=== PATIENT | male | born 1960 | race Caucasian/White ===

== ENCOUNTER → 2020-07-28 | Outpatient (CLI) | payer OTHER | LOC: SJCVC 12:10 | PROVIDERS: ATTEND Internal Medicine | DX: R94.31 Abnormal electrocardiogram [ECG] [EKG] (principal); R06.00 Dyspnea, unspecified; E78.5 Hyperlipidemia, unspecified ==

== ENCOUNTER → 2020-08-13 | Outpatient (CLI) | payer OTHER ==
[~2020-08-13] MED LIST: ASA81BEC PO; DEPO-TESTO100 MG/1 M IM; FENOFIBRATE160 MG PO; GLIPIZIDE5 MG PO; LISINOPRIL2.5 MG PO; METFORMIN HCL500 M3 PO; PROTONIX40 M4 PO; SILDENAFIL CIT100 MG PO; SUPER THERAVIT1 EACH PO
== END ==
LOC: SJCVCIMAG 07:02
PROVIDERS: ATTEND Internal Medicine
DX: I34.0 Nonrheumatic mitral (valve) insufficiency (principal); I42.0 Dilated cardiomyopathy; I48.0 Paroxysmal atrial fibrillation; I11.9 Hypertensive heart disease without heart failure; I49.3 Ventricular premature depolarization; R00.0 Tachycardia, unspecified; Z79.899 Other long term (current) drug therapy; Z87.891 Personal history of nicotine dependence

== ENCOUNTER → 2020-08-15 | Outpatient (CLI) | payer OTHER ==
[~2020-08-15] VITALS: Ht 175.3 cm; Wt 108.9 kg
[2020-08-15 07:09] VITALS: BP 160/94
[2020-08-15 07:31] LABS: HEMOGLOBIN 16.6 gm/dL (14.0-18.0); MCH 30.6 pg (26.0-34.0); MCHC 33.1 g/dL (28.0-37.0); MCV 92.3 fL (80.0-100.0); RBC 5.41 mil/uL (4.50-6.00); RDW 13.1 % (10.5-14.5)
--- NOTE | 2020-08-15 07:40 | EKG ---
[facility] [place] [address] ELECTROCARDIOGRAM REPORT Name: TEAGAN HOOD [id number] Admission: 08/15/20 Attend Phys: Lionel Nicolas MD, Discharge: Date of : 58 Report #: [id number] THIS REPORT FOR: cc: Yifan Amaral MD, David P. MD Lundgren, Craig H. MD 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 08/15/20 0740 7 7 Blaise Caballero MD, [facility] /EPI
[2020-08-15 07:41] LABS: CALCIUM 8.7 mg/dL (8.5-10.1); CREATININE 1.3 mg/dL (0.7-1.3); POTASSIUM 4.3 mmol/L (3.5-5.1)
--- NOTE | 2020-08-15 14:35 | CATHLAB ---
[facility] [place] [address] INVASIVE PROCEDURE REPORT Name: TEAGAN HOOD Room #: REG Cornelio OscarArmida#: [id number] Admission: 08/15/20 Attend Phys: Lionel Nicolas MD, Discharge: Date of : 58 Report #: [id number] THIS REPORT FOR: cc: Yifan Amaral MD, David P. MD Mancuso, Gerald M. MD [facility] ~ APPROVED REPORT Study performed: 08/15/2020 07:48:01 Patient Details Patient Status: Out-Patient Room #: The patient is a 59 year-old male Event Personnel Lionel Nicolas Manager [employer], David Chavarria RN RN, Tori Bosch RTR Scrub, Kayla Farah RTR Monitor Procedures Performed Right and Left Heart Cath w/or w/o Coronarie [id number] [facility] Indication Chest pain Procedure Narrative The Right Groin^ was infiltrated with 1% Lidocaine subcutaneous anesthesia. A Right Heart Catheterization was performed with a 7 Fr. [place] catheter and pressure were recorded. Cardiac outputs were obtained by the Thermal Dilution method. A PINNACLE 6FR Sheath #[id number] sheath was inserted into the RFA^. Coronary angiography was performed using coronary diagnostic catheters. The right coronary system was accessed and visualized with a JR4 catheter. The left coronary system was accessed and visualized with a JL4 catheter. The left ventricle was accessed and visualized with a PIGTAIL catheter. An aortogram of the abdominal aorta was performed. Closure device was deployed with a Fr 6FR MYNX DRY SAND MOLDER. The patient tolerated the procedure well and there were no complications associated with the procedure. There was no hematoma. Intraoperative Conscious Sedation Sedation start time: 8:52 Case end Time: 9:41 Fentanyl 75 mcg Versed 1 mg [facility] [place] [address] INVASIVE PROCEDURE REPORT Name: TEAGAN HOOD [facility] [id number] Admission: 08/15/20 Attend Phys: Lionel Nicolas, Discharge: Date of : 58 Report #: [id number] Fluoro Time: 8.10 minutes Dose: DAP 86364.90 cGycm2 1597 mGy Contrast Type and Amount: Visipaque 90 ml Hemodynamics The right atrial mean pressure is 15 mmHg. The right ventricular pressure is 41/5 mmHg. The pulmonary artery pressure is 37/24 mmHg with a mean of 29 mmHg. The mean pulmonary capillary wedge pressure is 22 mmHg. The aortic pressure is 145/88 mmHg with a mean of 103 mmHg. The cardiac output using thermo method is 5.40 L/min. The cardiac index using thermo method is 2.42 L/min/m2. Conclusion #1. Successful right heart catheterization with cardiac output by thermodilution. See above hemodynamics. #2 moderate global hypokinesis of the left ventricle with borderline dilatation EF 35% #3 mildly ectatic abdominal aorta without aneurysm. #4 left main free of disease giving rise to LAD and circumflex #5 LAD with mild irregularities extends around the apex. #6 circumflex OM dominant vessel with mild plaquing. #7 small nondominant right coronary artery Recommendations and plan: Continue aggressive risk factor modification. No indication for coronary intervention. Diuresis will be initiated by Dr. Schulte. <ELECTRONICALLY SIGNED> By: Lionel Nicolas MD, FACC 08/15/20 1435 1435 1435 Lionel Nicolas MD, FACC /INF
== END | disposition home or self-care (01) ==
LOC: CATH 06:19
PROVIDERS: ATTEND Internal Medicine Cardiovascular Disease
DX: R07.9 Chest pain, unspecified (principal); I25.10 Atherosclerotic heart disease of native coronary artery without angina pectoris; I77.811 Abdominal aortic ectasia; I42.9 Cardiomyopathy, unspecified; I10 Essential (primary) hypertension; E78.5 Hyperlipidemia, unspecified; E11.9 Type 2 diabetes mellitus without complications; K21.9 Gastro-esophageal reflux disease without esophagitis; E66.09 Other obesity due to excess calories; Z98.890 Other specified postprocedural states; Z79.899 Other long term (current) drug therapy; Z87.891 Personal history of nicotine dependence; Z79.82 Long term (current) use of aspirin